=== PATIENT | female | born 1995 | race Caucasian/White ===

== ENCOUNTER 2020-04-01 12:49 | Emergency (ER) | payer OTHER ==
[~2020-04-01] VITALS: Ht 165.1 cm; Wt 63.5 kg
[2020-04-01] MEDS ORDERED: AUGMENTIN 500-1 EACH PO (13:50)
[2020-04-01] MEDS ORDERED: APAP W/CODEINE1 TA2 PO (13:50)
[2020-04-01] MEDS ORDERED: NAPROSYN500 MG PO (13:50)
[2020-04-01 14:30] VITALS: BP 110/66
== END 2020-04-01 14:30 | disposition home or self-care (01) ==
LOC: M.ERS 12:49
DX: S61.253A Open bite of left middle finger without damage to nail, initial encounter (principal); S61.255A Open bite of left ring finger without damage to nail, initial encounter; W54.0XXA Bitten by dog, initial encounter; Y93.89 Activity, other specified; Y92.89 Other specified places as the place of occurrence of the external cause; Y99.9 Unspecified external cause status

== ENCOUNTER 2020-06-06 16:47 | Emergency (ER) | payer OTHER ==
[~2020-06-06] VITALS: Ht 162.6 cm; Wt 63.5 kg
[~2020-06-06 16:47] MED LIST: APAP W/CODEINE1 TA2 PO; AUGMENTIN 500-1 EACH PO; NAPROSYN500 MG PO
[2020-06-06 17:21] LABS: INFLUENZA A ANTIGEN Negative (Negative); INFLUENZA B ANTIGEN Negative (Negative)
[2020-06-06] MEDS ORDERED: AMOXICILLIN 50500 MG PO (17:39)
[2020-06-06] MEDS ORDERED: APAP W/CODEINE1 TA2 PO (17:39)
[2020-06-06 18:08] VITALS: BP 128/72
== END 2020-06-06 18:09 | disposition home or self-care (01) ==
LOC: M.ERS 16:47
PROVIDERS: Family Medicine
DX: J02.9 Acute pharyngitis, unspecified (principal); Z20.828 Contact with and (suspected) exposure to other viral communicable diseases; Z88.8 Allergy status to other drugs, medicaments and biological substances